=== PATIENT | male | born 1985 | race Caucasian/White ===

== ENCOUNTER 2024-08-19 13:38 | Emergency (ER) | payer MEDICAID, OTHER ==
[~2024-08-19] VITALS: Ht 188 cm; Wt 93.0 kg
[2024-08-19 13:46] VITALS: O2SAT 99
[2024-08-19 14:01] VITALS: BP 199/127; PULSE 94; RESP 16; TEMP 37; O2SAT 99
[2024-08-19] MEDS ORDERED: GUAI-450 MT (16:44)
[2024-08-19] MEDS ORDERED: BENZ1LOZ73 MT (16:44)
== END 2024-08-19 17:30 | disposition home or self-care (01) ==
LOC: ER 13:48
DX: I10 Essential (primary) hypertension (principal); B34.9 Viral infection, unspecified; Z88.6 Allergy status to analgesic agent
CPT/HCPCS: 71045; 99283